=== PATIENT | male | born 1940 | race Asian ===

== ENCOUNTER 2017-07-09 11:42 | Outpatient (CLI) | payer OTHER | END 2017-07-09 21:58 | disposition home or self-care (01) | LOC: RAD 11:42 | DX: M79.642 Pain in left hand (principal); M79.641 Pain in right hand ==

== ENCOUNTER 2021-05-07 11:32 | Outpatient (CLI) | payer OTHER | END 2021-05-07 20:10 | disposition home or self-care (01) | LOC: RAD 11:32 | PROVIDERS: ATTEND Nurse Practitioner Family | DX: M25.512 Pain in left shoulder (principal); M79.622 Pain in left upper arm ==